=== PATIENT | female | born 1970 | race Caucasian/White ===

== ENCOUNTER 2018-05-30 07:03 | Emergency (ER) | payer MEDICAID, OTHER ==
[2018-05-30] MEDS ORDERED: ONDANSETRON HCL INJ/PF 4 MG/2 ML SDV IV ONE (07:32)
[2018-05-30] MEDS ORDERED: MORPHINE SULFATE 10 MG/ML INJ IV ONE ×2 (07:32→08:41)
[2018-05-30] MEDS ORDERED: NORMAL SALINE 1000 ML 1,000 ML IV ONE (07:32)
--- NOTE | 2018-05-30 07:41 | ER Document Report ---
ED General - General Chief Complaint: Chest Pain from Injury Stated Complaint: chest pain Time Seen by Provider: 05/30/18 07:21 TRAVEL OUTSIDE OF THE [place] IN LAST 30 DAYS: No - HPI Notes: Patient is a 48-year-old female that presents to the emergency department for chief complaint of abdominal pain and chest pain. Patient states that she has had poor appetite for the last week. She reports some progressive nausea as well. Yesterday afternoon she started having a sharp pain in her epigastrium radiating across her upper abdomen and into her chest. She reports dry heaves but is unable to produce any emesis. She states yesterday she started having very liquidy stools as well. She does have a his tory of bowel obstruction but states this feels different because the pain is high and that pain was low. She denies any dysuria, urinary frequency, fevers, chills, shortness of breath. She denies any aggravating or relieving factors to her pain. She also denies palpitations. Past Medical History: Anxiety, hypertension Past Surgical History: Incisional hernia repair, cholecystectomy, vaginal fistula repair Social History: Daily tobacco, occasional alcohol, denies drug use Family History: Reviewed and noncontributory for presenting illness Allergies: Reviewed, see documented allergy list. REVIEW OF SYSTEMS: CONSTITUTIONAL : No fever chills No diaphoresis No recent illness EENT: No vision changes No congestion No sore throat CARDIOVASCULAR: chest pain No palpitations RESPIRATORY: No shortness of breath No cough No difficulty breathing GASTROINTESTINAL: abdominal pain nausea vomiting diarrhea GENITOURINARY: No dysuria No hematuria No difficulty urinating MUSCULOSKELETAL: No back pain No leg pain No arm pain SKIN: No rashes No lesions LYMPHATIC: No swollen, enlarged glands. NEUROLOGICAL: No lightheadedness No headache No weakness No paresthesias PSYCHIATRIC: No anxiety No depression PHYSICAL EXAMINATION: Vital signs reviewed, nursing noted reviewed. GENERAL: Well-appearing, well-nourished and in no acute distress. HEAD: Atraumatic, normocephalic. EYES: Eyes appear normal, extraocular movements intact, sclera anicteric, conjunctiva are normal. ENT: nares patent, oropharynx clear without exudates. Moist mucous membranes. NECK: Normal range of motion, supple without lymphadenopathy LUNGS: Breath sounds clear to auscultation bilaterally and equal. No wheezes rales or rhonchi. HEART: Regular rate and rhythm without murmurs ABDOMEN: Soft, mild diffuse abdominal tenderness. No rebound, guarding, or rigidity. No masses appreciated. EXTREMITIES: Nontender, good range of motion, no pitting or edema. NEUROLOGICAL: No focal neurological deficits. Moves all extremities spontaneously Motor and sensory grossly intact on exam. PSYCH: Normal mood, normal affect. SKIN: Warm, Dry, normal turgor, no rashes or lesions noted on exposed skin - Related Data Allergies/Adverse Reactions: amoxicillin Allergy (Unknown, Verified 05/30/18 08:16) Unknown reaction metronidazole [From Flagyl] Allergy (Verified 05/30/18 08:16) Past Medical History - Social History Smoking Status: Current Every Day Smoker Family History: Reviewed & Not Pertinent Physical Exam - Vital signs Vitals: Temp Pulse Resp BP Pulse Ox 97.5 F 66 20 163/95 H 98 05/30/18 07:05 05/30/18 07:05 05/30/18 07:05 05/30/18 07:05 05/30/18 07:05 Course - Re-evaluation Re-evalutation: 05/30/18 07:42 Vitals reviewed. Nursing notes reviewed. Patient has diffuse abdominal tenderness with no peritoneal signs. Her symptoms are concerning for bowel obstruction. Patient was given IV fluids, Zofran and morphine for symptom medic management. Her EKG shows no acute ischemic changes. The way she is describing her chest pain with no palpitations or dyspnea my suspicion for ACS is minimal. She will not be given any aspirin for this reason. 05/30/18 11:33 Patient's lab work is unremarkable. She has inflammation of her terminal ileum which is suggestive of Crohn's disease on CT. Patient has no history of inflammatory bowel disease. She will be referred to GI for further workup. She is tolerating oral intake. She is stable. She will be discharged home for further outpatient management. She will return for new or worsening symptoms. Laboratory 05/30/18 05/30/18 05/30/18 08:00 08:00 08:00 WBC 9.5 RBC 5.41 H Hgb 16.9 H Hct 49.4 H MCV 91 MCH 31.2 MCHC 34.2 RDW 13.0 Plt Count 309 Seg Neutrophils % 61.6 Lymphocytes % 29.2 Monocytes % 6.9 Eosinophils % 1.9 Basophils % 0.4 Absolute Neutrophils 5.9 Absolute Lymphocytes 2.8 Absolute Monocytes 0.7 Absolute Eosinophils 0.2 Absolute Basophils 0.0 Sodium 136.4 L Potassium 4.0 Chloride 100 Carbon Dioxide 26 Anion Gap 10 BUN 17 Creatinine 1.04 Est GFR ( Amer) > 60 Est GFR (Non-Af Amer) 57 L Glucose 98 Calcium 9.5 Total Bilirubin 0.7 Direct Bilirubin 0.3 Neonat Total Bilirubin Not Reportable Neonat Direct Bilirubin Not Reportable Neonat Indirect Bili Not Reportable AST 26 ALT 29 Alkaline Phosphatase 95 Troponin I < 0.012 Total Protein 6.6 Albumin 4.0 Lipase 62.6 Abdomen/Pelvis CT 05/30/18 00:00 IMPRESSION: Thickened and edematous terminal ileum, consistent with nonspecific infectious or inflammatory enteritis. This particular pattern of inflammation suggests inflammatory bowel disease such as Crohn's disease. Correlate for referable clinical history, if present. No evidence of perforation, abscess, fistula, or obstruction. There is a small volume of free fluid in adjacent low pelvis, likely reactive. Chest X-Ray 05/30/18 07:21 IMPRESSION: NO SIGNIFICANT RADIOGRAPHIC FINDING IN THE CHEST. KUB X-Ray 05/30/18 07:31 IMPRESSION: Nonspecific bowel gas pattern. No acute radiographic abnormality suggested. - Vital Signs Vital signs: Temp Pulse Resp BP Pulse Ox 97.5 F 66 17 126/75 H 97 05/30/18 07:05 05/30/18 07:05 05/30/18 10:01 05/30/18 10:01 05/30/18 10:01 - Laboratory Result Diagrams: 05/30/18 08:00 05/30/18 08:00 Laboratory results interpreted by me: 05/30/18 05/30/18 05/30/18 08:00 08:00 11:24 RBC 5.41 H Hgb 16.9 H Hct 49.4 H Sodium 136.4 L Est GFR (Non-Af Amer) 57 L Urine Protein 30 H Urine Ketones 20 H - EKG Interpretation by Me Additional EKG results interpreted by me: 05/30/18 07:42 Interpreted by myself 0712: Normal sinus rhythm, rate 63, normal axis, no ectopy, no ST elevation Discharge - Discharge Clinical Impression: Enteritis Abdominal pain Qualifiers: Abdominal location: unspecified location Qualified Code(s): R10.9 - Unspecified abdominal pain Condition: Stable Disposition: HOME, SELF-CARE Instructions: Abdominal Pain ([facility]) Additional Instructions: Please return to the emergency department if you have any worsening, or concern of your symptoms. Please return to the emergency department if you develop chest pain, difficulty breathing, severe abdominal pain, or ongoing vomiting. Please follow-up with your primary care physician in 2-3 days and any other recommended physicians. If prescribed, take all medications as directed. If you have any questions or concerns do not hesitate to return the emergency department for evaluation. There was some inflammation on your CT scan around her bowels. He need to f ollow-up with the sr community manager for further outpatient evaluation of Crohn's or other inflammatory bowel diseases. Referrals: JACQUI DYE MD [ACTIVE STAFF] - Follow up in 3-5 days
--- NOTE | 2018-05-30 08:08 | RADIOLOGY REPORT (SQ) ---
EXAM DESCRIPTION: KUB/ABDOMEN (SINGLE VIEW) COMPLETED DATE/TIME: 05/30/2018 7:42 am REASON FOR STUDY: abdominal pain COMPARISON: None. NUMBER OF VIEWS: One view. TECHNIQUE: Supine radiographic image of the abdomen acquired. LIMITATIONS: None. FINDINGS: BOWEL GAS PATTERN: No particular suggestion of obstruction. Mild gas in scattered loops o f bowel, including small bowel, most conspicuous in the left aspect of the abdomen. CALCIFICATIONS: No suspicious calcifications. SOFT TISSUES: No gross mass or suggestion of organomegaly. HARDWARE: None in the abdomen. BONES: No acute fracture. No worrisome bone lesions. OTHER: No other significant finding. IMPRESSION: Nonspecific bowel gas pattern. No acute radiographic abnormality suggested. TECHNICAL DOCUMENTATION: JOB ID: [id number] [employer]- All Rights Reserved Reading location - IP/workstation name: [email or web address]
--- NOTE | 2018-05-30 08:09 | RADIOLOGY REPORT (SQ) ---
EXAM DESCRIPTION: CHEST SINGLE VIEW COMPLETED DATE/TIME: 05/30/2018 7:42 am REASON FOR STUDY: chest pain COMPARISON: None. NUMBER OF VIEWS: One view. TECHNIQUE: Single frontal radiographic view of the chest acquired. LIMITATIONS: None. FINDINGS: LUNGS AND PLEURA: Hyperinflated but clear. No pneumothorax or opacity. MEDIASTINUM AND HILAR STRUCTURES: No masses. Contour normal. HEART AND VASCULAR STRUCTURES: Heart normal in size. Normal vasculature. BONES: No acute findings. HARDWARE: None in the chest. OTHER: No other significant finding. IMPRESSION: NO SIGNIFICANT RADIOGRAPHIC FINDING IN THE CHEST. TECHNICAL DOCUMENTATION: JOB ID: [id number] [employer]- All Rights Reserved Reading location - IP/workstation name: [email or web address]
[2018-05-30 08:26] LABS: ABSOLUTE EOSINOPHILS # (AUTO) 0.2 10^3/uL (0.0-0.6); ABSOLUTE LYMPHOCYTES (AUTO) 2.8 10^3/uL (0.5-4.7); ABSOLUTE MONOCYTES (AUTO) 0.7 10^3/uL (0.1-1.4); ABSOLUTE NEUT (AUTO) 5.9 10^3/uL (1.7-8.2); BASOPHILS % (AUTO) 0.4 % (0-2); EOSINOPHILS % (AUTO) 1.9 % (0-6); HEMATOCRIT 49.4 % (36.0-47.0); HEMOGLOBIN 16.9 g/dL (12.0-15.5); LYMPHOCYTES % (AUTO) 29.2 % (13-45); MEAN CORPUSCULAR HEMOGLOBIN 31.2 pg (27.0-33.4); MEAN CORPUSCULAR HGB CONC 34.2 g/dL (32.0-36.0); MEAN CORPUSCULAR VOLUME 91 fl (80-97); MONOCYTES % (AUTO) 6.9 % (3-13); PLATELET COUNT 309 10^3/uL (150-450); RED BLOOD COUNT 5.41 10^6/uL (3.72-5.28); SEGMENTED NEUTROPHILS % (AUTO) 61.6 % (42-78); TOTAL CELLS COUNTED % (AUTO) 100 %; WHITE BLOOD COUNT 9.5 10^3/uL (4.0-10.5)
[2018-05-30 08:45] LABS: ALANINE AMINOTRANSFERASE 29 U/L (9-52); ALKALINE PHOSPHATASE 95 U/L (38-126); ANION GAP 10 (5-19); ASPARTATE AMINO TRANSFERASE 26 U/L (14-36); BILIRUBIN,DIRECT 0.3 mg/dL (0.0-0.4); BILIRUBIN,TOTAL 0.7 mg/dL (0.2-1.3); BLOOD UREA NITROGEN 17 mg/dL (7-20); CALCIUM 9.5 mg/dL (8.4-10.2); CARBON DIOXIDE 26 mmol/L (22-30); CHLORIDE 100 mmol/L (98-107); GLUCOSE 98 mg/dL (75-110); LIPASE 62.6 U/L (23-300); SODIUM 136.4 mmol/L (137-145); TOTAL PROTEIN 6.6 g/dL (6.3-8.2)
--- NOTE | 2018-05-30 10:57 | RADIOLOGY REPORT (SQ) ---
EXAM DESCRIPTION: CT ABD/PELVIS WITH IV ORAL COMPLETED DATE/TIME: 05/30/2018 10:27 am REASON FOR STUDY: abdominal pain COMPARISON: None. TECHNIQUE: CT scan of the abdomen and pelvis performed using helical scanning technique with dynamic intravenous contrast injection. No oral contrast. Images reviewed with lung, soft tissue, and bone windows. Reconstructed coronal and sagittal MPR images reviewed. Delayed images for evaluation of the urinary system also acquired. All images stored on PACS. All CT scanners at this facility use dose modulation, iterative reconstruction, and/or weight based d osing when appropriate to reduce radiation dose to as low as reasonably achievable (ALARA). [facility]: Dose Right [facility]: CareDose [facility]: Dose Right [facility]: Teradose 4D [facility]: Piqora CONTRAST TYPE AND DOSE: contrast/concentration: Isovue 350.00 mg/ml; Total Contrast Delivered: 67.0 ml; Total Saline Delivered: 65.0 ml additional oral Gastrografin enteric contrast. RENAL FUNCTION: None required. The patient is less than 50 years old. RADIATION DOSE: CT Rad equipment meets quality standard of care and radiation dose reduction techniq ues were employed. CTDIvol: 6.2 - 8.4 mGy. DLP: 733 mGy-cm.. LIMITATIONS: None. FINDINGS: LOWER CHEST: No significant findings. No nodules or infiltrates. LIVER: Normal size. No masses. No dilated ducts. SPLEEN: Normal size. No focal lesions. PANCREAS: No masses. No significant calcifications. No adjacent inflammation or peripancreatic fluid collections. Pancreatic duct not dilated. GALLBLADDER: Surgically absent. ADRENAL GLANDS: No significant masses or asymmetry. RIGHT KIDNEY AND URETER: No solid masses. No significant calcifications. No hydronephrosis or hyd roureter. LEFT KIDNEY AND URETER: No solid masses. No significant calcifications. No hydronephrosis or hydr oureter. AORTA AND VESSELS: No aneurysm. No dissection. Renal arteries, SMA, celiac without stenosis. RETROPERITONEUM: No retroperitoneal adenopathy, hemorrhage or masses. BOWEL AND PERITONEAL CAVITY: The terminal ileum is thickened and edematous. The cecum is normal in a ppearance. APPENDIX: Normal. PELVIS: No mass. Small volume free fluid in the dependent low pelvis. Normal bladder. ABDOMINAL WALL: No masses. No hernias. BONES: No significant or acute findings. OTHER: No other significant finding. IMPRESSION: Thickened and edematous terminal ileum, consistent with nonspecific infectious or inflam matory enteritis. This particular pattern of inflammation suggests inflammatory bowel disease such a s Crohn's disease. Correlate for referable clinical history, if present. No evidence of perforation , abscess, fistula, or obstruction. There is a small volume of free fluid in adjacent low pelvis, li mara reactive. TECHNICAL DOCUMENTATION: JOB ID: [id number] Quality ID # [id number]: Final reports with documentation of one or more dose reduction techniques (e.g., Au tomated exposure control, adjustment of the mA and/or kV according to patient size, use of iterative reconstruction technique) 2010 [employer]- All Rights Reserved Reading location - IP/workstation name: [email or web address]
[2018-05-30 11:42] LABS: APPEARANCE,URINE CLEAR; BILIRUBIN,URINE NEGATIVE (NEGATIVE); COLOR,URINE YELLOW; GLUCOSE, URINE NEGATIVE (NEGATIVE); KETONES,URINE 20 mg/dL (NEGATIVE); LEUKOCYTE ESTERASE,URINE NEGATIVE (NEGATIVE); NITRITE,URINE NEGATIVE (NEGATIVE); PROTEIN,URINE 30 mg/dL (NEGATIVE); UROBILINOGEN,URINE NEGATIVE mg/dL (<2.0)
[2018-05-30 11:52] VITALS: BP 111/71
--- NOTE | 2018-05-30 17:54 | EKG REPORT ---
SEVERITY:- NORMAL ECG - SINUS RHYTHM : Confirmed by: Jese Downing 30-May-2018 17:53:34
== END 2018-05-30 11:56 | disposition home or self-care (01) ==
LOC: ER 07:03
DX: K52.9 Noninfective gastroenteritis and colitis, unspecified (principal); R07.9 Chest pain, unspecified; R68.83 Chills (without fever); I10 Essential (primary) hypertension; F17.200 Nicotine dependence, unspecified, uncomplicated; Z87.19 Personal history of other diseases of the digestive system; Z90.49 Acquired absence of other specified parts of digestive tract; Z88.0 Allergy status to penicillin; Z88.1 Allergy status to other antibiotic agents
CPT/HCPCS: 93005; 96376; 99285; 96361; 96374; 96375; 36415; 83690; 85025; 80053; 81001; 84484; 71045; 74018; 74177; 93010; J2270; J2405; J7030

== ENCOUNTER 2018-08-27 08:23 | Day surgery (SDC) | payer OTHER ==
[~2018-08-27 08:23] MED LIST: PROPOFOL INJ 200 MG/20 ML VIAL IV ONE
[2018-08-27 10:42] VITALS: BP 144/73
--- NOTE | 2018-08-27 13:10 | Operative Report ---
Operative Report DATE OF SURGERY: 08/27/18 Operative Report: The risks, benefits and alternatives of the procedure including the risk of bleeding, perforation requiring surgery have been explained to the patient in detail and informed consent has been obtained. Patient was placed in the left, lateral decubital position. Timeout was called. Propofol medication is administered. A rectal examination was done which did not reveal any masses, tears or fissures. An Olympus videoscope was introduced into the patient's rectum. The scope was then carefully advanced all the way to the cecum. The cecum was identified by the usual anatomical landmarks including the ileocecal valve as well as the appendiceal office. Photodocumentation was obtained. Scope was then sequentially pulled back via the various segments of the colon including the ascending colon, hepatic flexure, transverse colon, splenic flexure, descending colon and finally into the rectosigmoid portions of the colon. Retroflexion maneuver was performed. The risks benefits and alternatives of the procedure explained to the patient in detail and informed consent is obtained.A GIF Olympus video scope was inserted into the patient's mouth and hypopharynx, the esophagus is identified intubated and insufflated, the scope was then advanced through the esophagus stomach and duodenum, retroflexion maneuver is done, the esophagus stomach and first and second portions of the duodenum examined. PREOPERATIVE DIAGNOSIS: Abnormal CT scan indicating possible thickened terminal ileum. Epigastric pain POSTOPERATIVE DIAGNOSIS: Hiatal hernia. Gastritis status post biopsy for Helicobacter pylori. Duodenitis. Internal hemorrhoids. Diverticulosis. Mild ileitis status post biopsy at the terminal ileum OPERATION: Colonoscopy with biopsy. EGD with biopsy SURGEON: JACQUI DYE ANESTHESIA: LMAC TISSUE REMOVED OR ALTERED: As noted above. COMPLICATIONS: None. ESTIMATED BLOOD LOSS: None. INTRAOPERATIVE FINDINGS: As noted above. PROCEDURE: Patient tolerated the procedure well. No immediate postprocedure complications are noted. Patient discharged in good condition. Discharge date 08/27/2018. Discharge diet: Regular. Discharge activity: Regular. 2-3-week follow-up to discuss findings. Patient is instructed to call the office or proceed to the emergency room should there be any further proximal questions. Wait on the pathology
== END 2018-08-27 10:30 | disposition home or self-care (01) ==
LOC: END 08:23
PROVIDERS: ATTEND Internal Medicine Gastroenterology
DX: K44.9 Diaphragmatic hernia without obstruction or gangrene (principal); K29.50 Unspecified chronic gastritis without bleeding; K29.80 Duodenitis without bleeding; K57.30 Diverticulosis of large intestine without perforation or abscess without bleeding; K64.8 Other hemorrhoids; K52.9 Noninfective gastroenteritis and colitis, unspecified; E78.2 Mixed hyperlipidemia; D50.9 Iron deficiency anemia, unspecified; Z87.891 Personal history of nicotine dependence; Z79.899 Other long term (current) drug therapy; Z88.2 Allergy status to sulfonamides; Z88.0 Allergy status to penicillin; Z91.040 Latex allergy status
CPT/HCPCS: 43239; 45380; 88342 ×2; 88305 ×2; J2704; 813

== ENCOUNTER 2018-10-21 09:10 | Emergency (ER) | payer OTHER ==
[2018-10-21] MEDS ORDERED: DIPHENHYDRAMINE HCL 50 MG/ML VIAL ONE (09:18)
[2018-10-21] MEDS ORDERED: METHYLPREDNISOLONE INJ 125 MG/2 ML SDV ONE (09:19)
[2018-10-21] MEDS ORDERED: EPINEPHRINE INJ/PF 1 MG/1 ML AMPULE ONE (09:19)
[2018-10-21] MEDS ORDERED: FAMOTIDINE INJ/PF 20 MG/2 ML SDV IV ONE ×2 (09:19→09:31)
[2018-10-21] MEDS ORDERED: METHYLPREDNISOLONE INJ 125 MG/2 ML SDV IV ONE (09:31)
--- NOTE | 2018-10-21 09:48 | ER Document Report ---
ED General - General Chief Complaint: Swelling of Tongue Stated Complaint: SWOLLEN TOUNGE Time Seen by Provider: 10/21/18 09:25 Primary Care Provider: MARLEN GALAN DO [Primary Care Provider] - Follow up as needed TRAVEL OUTSIDE OF THE [place] IN LAST 30 DAYS: No - HPI Notes: Patient is a 48-year-old female that presents to the emergency department for chief complaint of tongue swelling. Patient states she has been having intermittent allergic symptoms including her urticaria, facial swelling and lingular swelling since October 12. She has had 2 visits at her primary care physician's office, [facility]. Patient states that her tongue swelling has been waxing and waning but this morning reoccurred and was more severe than it had previously been. She states her whole tongue was swollen this morning. She took a dose of Benadryl 25mg at 1:30 AM and and another 50 mg at 645. She states the Benadryl has significantly improved her tongue swelling and she now only feels a little edema on the right lateral aspect of her tongue. She denies any difficulty swallowing or breathing. She denies palpitations and lightheadedness. She is currently on a prednisone taper and states she took 1 prednisone this morning but is not sure what the dose was. She did have allergy testing last week and was told she was allergic to egg whites and cows milk but denies exposure to these substances. She denies any new urticaria today. She denies being on any HELEN/ARB or family history of facial swelling. She has never required an EpiPen before. Past Medical History: Hypertension Past Surgical History: Tubal ligation, cholecystectomy, knee surgery Social History: Daily tobacco. Denies drug and alcohol use Family History: Reviewed and noncontributory for presenting illness Allergies: Reviewed, see documented allergy list. REVIEW OF SYSTEMS: CONSTITUTIONAL : No fever No chills No diaphoresis No recent illness EENT: Tongue swelling No vision changes No congestion No sore throat CARDIOVASCULAR: No chest pain No palpitations RESPIRATORY: No shortness of breath No cough No difficulty breathing GASTROINTESTINAL: No abdominal pain No nausea No vomiting No diarrhea GENITOURINARY: No dysuria No hematuria No difficulty urinating MUSCULOSKELETAL: No back pain No leg pain No arm pain SKIN: rashes No lesions LYMPHATIC: No swollen, enlarged glands. NEUROLOGICAL: No lightheadedness No headache No weakness No paresthesias PSYCHIATRIC: No anxiety No depression PHYSICAL EXAMINATION: Vital signs reviewed, nursing noted reviewed. GENERAL: Well-appearing, well-nourished and in no acute distress. HEAD: Atraumatic, normocephalic. EYES: Eyes appear normal, extraocular movements intact, sclera anicteric, conj unctiva are normal. ENT: Focal area of lingual edema on lateral anterior right side of tongue not involving the entire unilateral tongue. Nares patent, oropharynx clear without exudates. No uvular edema, moist mucous membranes. Aphthous ulcer to middle lower lip. No lip edema no facial edema. NECK: Normal range of motion, supple without lymphadenopathy LUNGS: Breath sounds clear to auscultation bilaterally and equal. No wheezes rales or rhonchi. HEART: Regular rate and rhythm without murmurs ABDOMEN: Soft, nontender, normoactive bowel sounds. No rebound, guarding, or rigidity. No masses appreciated. EXTREMITIES: Nontender, good range of motion, no pitting or edema. NEUROLOGICAL: No focal neurological deficits. Moves all extremities spontaneously Motor and sensory grossly intact on exam. PSYCH: Normal mood, normal affect. SKIN: Warm, Dry, normal turgor, no rashes or lesions noted on exposed skin - Related Data Allergies/Adverse Reactions: latex Allergy (Intermediate, Verified 10/21/18 09:11) RASH, HIVES amoxicillin Allergy (Mild, Verified 10/21/18 09:11) HIVES RASH clavulanic acid [From Augmentin] Allergy (Mild, Verified 10/21/18 09:11) RASH, HIVES metronidazole [From Flagyl] Allergy (Mild, Verified 10/21/18 09:11) RASH, HIVES doxycycline Allergy (Verified 10/21/18 09:11) Past Medical History - Social History Smoking Status: Current Every Day Smoker Family History: Reviewed & Not Pertinent - Past Medical History Cardiac Medical History: Reports: Hx Hypertension Denies: Hx Coronary Artery Disease, Hx Heart Attack Pulmonary Medical History: Denies: Hx Asthma, Hx Bronchitis, Hx COPD, Hx Pneumonia Neurological Medical History: Denies: Hx Cerebrovascular Accident, Hx Seizures Renal/ Medical History: Denies: Hx Peritoneal Dialysis Musculoskeletal Medical History: Reports Hx Arthritis - Immunizations Hx Diphtheria, Pertussis, Tetanus Vaccination: Yes Physical Exam - Vital signs Vitals: Temp Pulse Resp BP Pulse Ox 98.5 F 68 18 154/104 H 100 10/21/18 09:12 10/21/18 09:12 10/21/18 09:12 10/21/18 09:12 10/21/18 09:12 Course - Re-evaluation Re-evalutation: 10/21/18 09:48 Vitals reviewed. Nursing notes reviewed. Patient has a small area of swelling on the right anterior lateral part of her tongue. She has had significant improvement compared to a picture that she took prior to taking Benadryl at 645 this morning. They photo showed diffuse lingular edema. Patient has taken 1 prednisone today but is unsure of the dose. She was tapering down and states this is the lowest dose at the end of her taper. She will be given a dose of IV Solu-Medrol for her allergic reaction. Patient has also received Pepcid in the ED. She has no oral pharyngeal edema or respiratory symptoms. Her vitals are stable. She is not currently requiring epinephrine. She is not on any HELEN inhibitor. Her blood pressure medication is metoprolol and has not changed recently. 10/21/18 10:58 Patient reevaluated. She has a most complete resolution of her lingual edema. There is still a small area about the size of the head of a Q-tip that is swollen on the lateral aspect of her right tongue. Her oropharynx is patent with no edema. She will be started back on a high dose of prednisone with a slower taper. She will begin journaling exposures to help discern what she is allergic to. She will continue taking Benadryl and Pepcid at home as needed. She will follow with primary care tomorrow. She will be prescribed EpiPen in case of severe anaphylactic reaction which we did discuss indications for. - Vital Signs Vital signs: Temp Pulse Resp BP Pulse Ox 98.5 F 68 18 154/104 H 100 10/21/18 09:12 10/21/18 09:12 10/21/18 09:12 10/21/18 09:12 10/21/18 09:12 Discharge - Discharge Clinical Impression: Allergic reaction Qualifiers: Encounter type: initial encounter Qualified Code(s): T78.40XA - Allergy, unspecified, initial encounter Condition: Stable Disposition: HOME, SELF-CARE Instructions: Acute Allergic Reaction ([facility]), Epinephrine Additional Instructions: Please return to the emergency department if you have any worsening, or concern of your symptoms. Please return to the emergency department if you develop chest pain, difficulty breathing, severe abdominal pain, or ongoing vomiting. Please follow-up with your primary care physician in 2-3 days and any other recommended physicians. If prescribed, take all medications as directed. If you have any questions or concerns do not hesitate to return the emergency department for evaluation. Keep a journal of environmental and food exposures as well as your symptoms to help figure out what is triggering your allergic reactions Prescriptions: Epinephrine [Epipen] 0.3 mg IJ ONCE PRN #1 auto.injct PRN Reason: Prednisone [Deltasone 20 mg Tablet] 20 mg PO ASDIR PRN #30 tablet PRN Reason: Referrals: MARLEN GALAN DO [Primary Care Provider] - Follow up tomorrow
[2018-10-21 11:21] VITALS: BP 136/91
== END 2018-10-21 11:20 | disposition home or self-care (01) ==
LOC: ER 09:10
DX: T78.40XA Allergy, unspecified, initial encounter (principal); R60.0 Localized edema; X58.XXXA Exposure to other specified factors, initial encounter; I10 Essential (primary) hypertension; R21 Rash and other nonspecific skin eruption; F17.200 Nicotine dependence, unspecified, uncomplicated; Z91.011 Allergy to milk products; Z91.012 Allergy to eggs; Z88.1 Allergy status to other antibiotic agents; Z91.040 Latex allergy status; Z88.0 Allergy status to penicillin
CPT/HCPCS: 99283; 96374; 96375; J2930; S0028

== ENCOUNTER 2020-03-26 07:49 | Day surgery (SDC) | payer OTHER ==
[2020-03-26 09:29] VITALS: BP 111/70
--- NOTE | 2020-03-26 11:21 | Operative Report ---
Operative Report DATE OF SURGERY: 03/26/20 Operative Report: The risks benefits and alternatives of the procedure explained to the patient in detail and informed consent is obtained.A GIF Olympus video scope was inserted into the patient's mouth and hypopharynx, the esophagus is identified intubated and insufflated, the scope was then advanced through the esophagus stomach and duodenum ,retroflexion maneuver is done ,the esophagus stomach and first and second portions of the duodenum examined PREOPERATIVE DIAGNOSIS: Epigastric pain, dysphagia POSTOPERATIVE DIAGNOSIS: Schatzki's ring status post breakage. Hiatal hernia. Gastritis status post biopsy OPERATION: EGD with biopsy SURGEON: JACQUI DYE ANESTHESIA: LMAC TISSUE REMOVED OR ALTERED: As noted above. COMPLICATIONS: None. ESTIMATED BLOOD LOSS: None. INTRAOPERATIVE FINDINGS: As noted above. PROCEDURE: Patient tolerated the procedure well. No immediate postprocedure complications are noted. Patient is discharged in good condition. Discharge date 03/26/2020. Discharge diet: Regular. Discharge activity: Regular. 2 to 3-week follow-up to discuss findings. Patient is instructed to call the office or proceed to the emergency room should there be any further problems questions. Wait on the pathology.
--- OUTSIDE RECORDS SUMMARY | 2020-03-27 14:59 | XMS REPORT ---
:1970 [facility] [place] [address] [place] [id number] Care Team Providers Name Role Phone Jackson You Attending Clinician Unavailable Alice Attending Clinician Unavailable Jem Attending Clinician Unavailable Allergies, Adverse Reactions, Alerts Allergy Allergy Status Severity Reaction(s) Onset Inactive Treating C omments Name Type Date Date Clinician SULFA Miscellane Active Unknown Unknown (SULFONAMID ous 4-02 E allergy 00:00: ANTIBIOTICS 00 ) EGG Drug Inactive Unknown Unknown allergy 3- 00:00: 00 AMOXICILLIN Drug Inactive Unknown Unknown allergy 3 00:00: 00 POTASSIUM Drug Inactive Unknown Unknown 0 CLAVULANATE allergy 3 00:00: 00 METRONIDAZO Drug Inactive Unknown Unknown LE allergy 3 00:00: 00 AMOXICILLIN Drug Inactive Unknown Unknown 0 TRIHYDRATE allergy 3 00:00: 00 LATEX Drug Inactive Unknown Unknown 0 allergy 3- 00:00: 00 Amoxicillin Allergy to Active substance Augmentin Allergy to Active substance Egg Allergy to Active substance Flagyl Allergy to Active substance Latex Allergy to Active substance Milk Allergy to Active substance Influenza Allergy to Active Virus substance Vaccines Medications Ordered Filled Start Stop Current Ordering Indication Dosage Frequency Signature Comments Components Medication Medication Date Date Medication? Clinician (SIG) Name Name alprazolam No alprazolam 0.5 mg 0.5 mg tablet tablet clobetasol No clobetasol 0.05 % 0.05 % topical topical ointment ointment doxycycline No doxycyclin hyclate 100 e hyclate mg tablet 100 mg tablet epinephrine No epinephrin 0.3 mg/0.3 e 0.3 mL mg/0.3 mL injection, injection, auto-inject auto-injec or tor Euflexxa 10 No 2.5mL Euflexxa mg/mL (mw 10 mg/mL 2.4-3.6 (mw million) 2.4-3.6 intra-artic million) ular intra-hanna syringe cular Inject 2.5 syringe mL by Inject 2.5 intra-artic mL by ular route intra-hanna for 35 cular days. route for 35 days. metoprolol No metoprolol tartrate 25 tartrate mg tablet 25 mg tablet prednisone No prednisone 20 mg 20 mg tablet tablet Problems Condition Condition Condition Status Onset Resolution Last Treatin g Comments Name Details Category Date Date Treatment Clinician Date Pain in Pain in Problem Active left knee Left Knee 01-31 00:00: 00 Anxiety Anxiety Problem Active 09-06 00:00: 00 Hypertensiv Hypertensiv Problem Active e disorder e Disorder 09-06 00:00: 00 Bilateral Bilateral Problem Active knee pain Knee Pain 09-06 00:00: 00 Procedures Procedure Date / Time Performed Performing Clinician Devic e OFFICE/OUTPATIENT VISIT EST 2020-02-18 19:30:00 PSYCH DIAGNOSTIC EVAL (W/ MED [facility]) 2019-11-21 19:00:00 OFFICE/OUTPATIENT VISIT EST 2018-11-22 16:00:00 OFFICE/OUTPATIENT VISIT [facility] 2018-11-07 14:00:00 RADIOLOGIC EXAM KNEE 3 VIEWS 2018-09-06 00:00:00 Hernia Repair Knee Surgery Results Test Description Test Time Test Comments Text Results Atomic Results Result Comments SARS-CoV-2, VESNA\S\ 2020-03-23 00:00:00 Test Item Value Reference Range Comments SARS-CoV-2, VESNA (test code = 89270-5) Not Detected Not Detect ed CBC (INCLUDES DIFF/PLT)2019-12-03 08:06:00 Test Item Value Reference Range Comments PLATELET COUNT (test code = 84781383) 261 Thousand/uL 140-400 MCH (test code = 67214269) 31.1 pg 27.0-33.0 WHITE BLOOD CELL COUNT (test code = 7.3 Thousand/uL 3.8-10.8 74702873) MONOCYTES (test code = 56447271) 6.1 % RDW (test code = 43072298) 12.0 % 11.0-15.0 MCV (test code = 57733520) 93.6 fL 80.0-100.0 BASOPHILS (test code = 69314661) 0.7 % HEMOGLOBIN (test code = 47764367) 13.7 g/dL 11.7-15.5 RED BLOOD CELL COUNT (test code = 11319463) 4.40 Million/uL 3.80 -5.10 ABSOLUTE MONOCYTES (test code = 53287780) 445 cells/uL 200-95 0 HEMATOCRIT (test code = 44478829) 41.2 % 35.0-45.0 MCHC (test code = 64519815) 33.3 g/dL 32.0-36.0 EOSINOPHILS (test code = 93400203) 4.6 % ABSOLUTE BASOPHILS (test code = 23589669) 51 cells/uL 0-200 NEUTROPHILS (test code = 28970936) 47 % ABSOLUTE EOSINOPHILS (test code = 33571161) 336 cells/uL 15-5 00 LYMPHOCYTES (test code = 12310399) 41.6 % ABSOLUTE LYMPHOCYTES (test code = 04959719) 3037 cells/uL 850- 3900 ABSOLUTE NEUTROPHILS (test code = 24698785) 3431 cells/uL 1500 -7800 MPV (test code = 94021984) 9.8 fL 7.5-12.5 [id number] 08:06:002.16COMPREHENSIVE METABOLIC [id number] 08:06:00 Test Item Value Reference Range Comments ALBUMIN/GLOBULIN RATIO (test code = 2.0 (calc) 1.0-2.5 71446662) ALBUMIN (test code = 67606833) 4.0 g/dL 3.6-5.1 GLUCOSE (test code = 09951565) 87 mg/dL 65-99 CARBON DIOXIDE (test code = 38856639) 25 mmol/L 20-32 UREA NITROGEN (BUN) (test code = 14 mg/dL 7-25 75717370) BUN/CREATININE RATIO (test code = NOT APPLICABLE (calc) 6-22 04724776) GLOBULIN (test code = 36791528) 2.0 g/dL (calc) 1.9-3.7 ALT (test code = 03899467) 12 U/L 6-29 BILIRUBIN, TOTAL (test code = 0.4 mg/dL 0.2-1.2 98516554) AST (test code = 68783456) 16 U/L 10-35 eGFR (test code = 91 mL/min/1.73m2 > OR = 60 70703111) eGFR NON-AFR. ENGLISH (test code = 78 mL/min/1.73m2 > OR = 60 79975595) SODIUM (test code = 82021182) 141 mmol/L 135-146 POTASSIUM (test code = 53600966) 4.4 mmol/L 3.5-5.3 CREATININE (test code = 21277186) 0.87 mg/dL 0.50-1.10 CALCIUM (test code = 84590886) 9.2 mg/dL 8.6-10.2 ALKALINE PHOSPHATASE (test code = 88 U/L 31-125 37350197) PROTEIN, TOTAL (test code = 43024058) 6.0 g/dL 6.1-8.1 CHLORIDE (test code = 73032752) 108 mmol/L 98-110 LIPID PANEL, [id number] 08:06:00 Test Item Value Reference Range Comments NON HDL CHOLESTEROL (test code = 97202658) 143 mg/dL (calc) <130 TRIGLYCERIDES (test code = 20732294) 67 mg/dL <150 CHOL/HDLC RATIO (test code = 91357104) 3.2 (calc) <5.0 LDL-CHOLESTEROL (test code = 39862234) 127 mg/dL (calc) HDL CHOLESTEROL (test code = 06269712) 65 mg/dL > OR = 50 CHOLESTEROL, TOTAL (test code = 77389678) 208 mg/dL <200 Assessments Condition Name Status Diagnosis Date Treating Clinici an Attention-deficit hyperactivity Active disorder, combined type Generalized anxiety disorder Active Mixed obsessional thoughts and acts Active Social phobia, unspecified Active Attention-deficit hyperactivity Active disorder, combined type Generalized anxiety disorder Active Social phobia, unspecified Active Mixed obsessional thoughts and acts Active Pain in left knee Active 2019-02-07 15:59:33 Bilateral knee pain Active 2019-02-07 16:01:26 Osteoarthritis of knee Active 2019-02-07 16:33:59 Pain in left knee Active 2019-01-31 15:07:04 Osteoarthritis of knee Active 2019-01-31 15:29:28 Bilateral knee pain Active 2019-01-24 16:13:50 Osteoarthritis of knee Active 2019-01-24 16:34:59 Osteoarthritis of left knee joint Active 2018-12-11 16: 15:04 Dermatitis, unspecified Active Dyshidrosis [pompholyx] Active Idiopathic urticaria Active Body mass index (BMI) 24.0-24.9, adult Active Idiopathic urticaria Active Dermatitis, unspecified Active Dyshidrosis [pompholyx] Active Body mass index (BMI) 24.0-24.9, adult Active Bilateral knee pain Active 2018-11-06 16:02:46 Osteoarthritis of knee Active 2018-11-06 18:09:43 Bilateral knee pain Active 2018-11-01 13:48:46 Osteoarthritis of knee Active 2018-11-06 18:10:42 Bilateral knee pain Active 2018-10-24 15:19:49 Osteoarthritis of knee Active 2018-10-25 07:23:30 Osteoarthritis of knee Active 2018-09-06 16:13:26 Encounters Start End Encounter Admission Attending Care Care Encounter Date/Time Date/Time Type Type Clinicians Facility Department ID 2020-02-18 2020-02-18 Outpatient [facility] [id number] 19:30:00 19:30:00 You Children [id number] s [id number] and [id number] [facility], 2019-11-21 2019-11-21 Outpatient [facility] A [id number] 19:00:00 19:00:00 Petros Children [id number] s [id number] and [id number] [facility], 2019-02-07 2019-02-07 Leandro Ma [id number] 00:00:00 00:00:00 [facility] [id number] MD [facility] [address] [place] [address], [address] [place] [address], Ph. 2019-01-31 2019-01-31 Leandro Ma [id number] 00:00:00 00:00:00 [facility] [id number] MD [facility] [address] [place] [address], [address] [place] [address], Ph. 2019-01-24 2019-01-24 Leandro Ma [id number] 00:00:00 00:00:00 [facility] [id number] MD Sam[facility] [address] [place] [address], [address], [place] [address], Ph. 2018-12-11 2018-12-11 Leandro Ma [id number] 00:00:00 00:00:00 [facility] [id number] MD Samantha: [facility] [address] [place] [address], [address], [place] [address], Ph. 2018-11-22 2018-11-22 Outpatient Hioe, [facility] [id number] 16:00:00 16:00:00 Children [id number] s [id number] and [id number] [facility]ispecial ty Clinic, 2018-11-07 2018-11-07 Outpatient Hioe, [facility] [id number] 14:00:00 14:00:00 Children [id number] s [id number] and [id number] Multispecial ty Clinic, 2018-11-06 2018-11-06 Leandro Ma [id number] 00:00:00 00:00:00 [facility] [id number] MD Sam[facility] [address] [place] [address], [address], [place] [address], Ph. 2018-11-01 2018-11-01 Leandro Ma [id number] 00:00:00 00:00:00 [facility] [id number] MD Samantha[facility] [address] [place] [address], [address], [place] [address], Ph. 2018-10-24 2018-10-24 Leandro Ma [id number] 00:00:00 00:00:00 [facility] [id number] MD Samantha: [facility]ou [facility] [address] [place] [address], [address], [place] [address], Ph. 2018-09-06 2018-09-06 Leandro Ma [id number] 01 00:00:00 00:00:00 [facility] [id number] MD Sam[facility] [address] [facility], [address], [place] [address], Ph. [phone] Social History Smoking Status Start Date Stop Date Current Some Day Smoker Vital Signs Vital Name Observation Time Observation Value Comments Height 2019-02-07 00:00:00 64 [in_i] BMI (Body Mass Index) 2019-02-07 00:00:00 22.3 kg/m2 Body Weight 2019-02-07 00:00:00 130 [lb_av] Height 2019-01-31 00:00:00 64 [in_i] BMI (Body Mass Index) 2019-01-31 00:00:00 22.3 kg/m2 Body Weight 2019-01-31 00:00:00 130 [lb_av] Height 2019-01-24 00:00:00 64 [in_i] BMI (Body Mass Index) 2019-01-24 00:00:00 22.3 kg/m2 Body Weight 2019-01-24 00:00:00 130 [lb_av] BMI (Body Mass Index) 2018-12-11 00:00:00 22.3 kg/m2 Body Weight 2018-12-11 00:00:00 130 [lb_av] Height 2018-12-11 00:00:00 64 [in_i] Hospital Discharge Instructions 1. Bilateral knee pain 2. Osteoarthritis of knee knee arthritis: care instructions Discussion Note: None recorded.1. Osteoarthritis of left knee joint Euflexxa 10 mg/mL (mw 2.4-3.6 million) intra-articular syringe Discussion Note: None recorded. Patient educational handouts: No information available.1. Bilateral knee pain 2. Osteoarthritis of knee knee arthritis: care instructions Discussion Note: None recorded.1. Osteoarthritis of knee XR, knee, 3 view Discussion Note: None recorded. Patient educational handouts: No information available.
== END 2020-03-26 10:45 | disposition home or self-care (01) ==
LOC: END 07:49
PROVIDERS: ATTEND Internal Medicine Gastroenterology
DX: K29.50 Unspecified chronic gastritis without bleeding (principal); K20.90 Esophagitis, unspecified without bleeding; K22.2 Esophageal obstruction; K44.9 Diaphragmatic hernia without obstruction or gangrene; F41.1 Generalized anxiety disorder; Z90.49 Acquired absence of other specified parts of digestive tract; Z79.899 Other long term (current) drug therapy; I10 Essential (primary) hypertension; F17.210 Nicotine dependence, cigarettes, uncomplicated; Z20.828 Contact with and (suspected) exposure to other viral communicable diseases
CPT/HCPCS: 43239; 88305 ×2; 00731; J2704; 731